=== PATIENT | female | born 1970 | race Two or more races ===

== ENCOUNTER 2017-03-26 14:12 | Outpatient (CLI) | payer OTHER ==
[~2017-03-26 14:12] MED LIST: FORADIL12 MCG; SINGULAIR10 MG; SYNTHROID112 MCG PO
== END 2017-03-26 14:16 | disposition home or self-care (01) ==
LOC: MAMO-SONO 14:12
DX: Z12.31 Encounter for screening mammogram for malignant neoplasm of breast (principal); N64.89 Other specified disorders of breast

== ENCOUNTER 2017-06-03 14:01 | Outpatient (CLI) | payer OTHER | END 2017-06-03 14:45 | disposition home or self-care (01) | LOC: SONOGRAMA 14:01 | DX: N60.11 Diffuse cystic mastopathy of right breast (principal); N60.12 Diffuse cystic mastopathy of left breast ==

== ENCOUNTER 2017-08-09 06:45 | Day surgery (SDC) | payer OTHER ==
[~2017-08-09 06:45] MED LIST changes: +SIMBICORT IH
== END 2017-08-09 19:35 | disposition home or self-care (01) ==
LOC: CIR.AMB 06:45
DX: D24.2 Benign neoplasm of left breast (principal)

== ENCOUNTER 2020-10-24 09:19 | Outpatient (CLI) | payer OTHER | END 2020-10-24 09:21 | disposition home or self-care (01) | LOC: MAMO-SONO 09:19 | PROVIDERS: ATTEND Surgery | DX: N60.11 Diffuse cystic mastopathy of right breast (principal); N60.12 Diffuse cystic mastopathy of left breast; D49.3 Neoplasm of unspecified behavior of breast; Z12.31 Encounter for screening mammogram for malignant neoplasm of breast ==

== ENCOUNTER 2022-04-25 12:03 | Outpatient (CLI) | payer OTHER | END 2022-04-25 15:01 | disposition home or self-care (01) | LOC: MAMO-SONO 12:03 | PROVIDERS: ATTEND Surgery | DX: N60.11 Diffuse cystic mastopathy of right breast (principal); N60.12 Diffuse cystic mastopathy of left breast ==

== ENCOUNTER → 2024-03-11 | Outpatient (CLI) | payer OTHER | END | disposition home or self-care (01) | LOC: MAMO-SONO 13:25 | DX: R92.8 Other abnormal and inconclusive findings on diagnostic imaging of breast (principal); Z12.31 Encounter for screening mammogram for malignant neoplasm of breast ==